=== PATIENT | female | born 1980 | race African-American/Black ===

== ENCOUNTER 2017-06-29 11:33 | Emergency (ER) | payer OTHER ==
[~2017-06-29] VITALS: Ht 166.4 cm; Wt 104.3 kg
[2017-06-29] MEDS ORDERED: IV NORMAL SALINE 1000ML BAG 1,000 ML IV SCH (12:06)
--- NOTE | 2017-06-29 12:07 | PHYS DOC ---
Past Medical History Past Medical History: No Pertinent History Past Surgical History: Tubal ligation Alcohol Use: None Drug Use: Marijuana Adult General Chief Complaint Chief Complaint: DIZZY/LIGHT HEADED HPI HPI Patient is a 36 year old -[place] female who presents with nausea and vertigo type symptoms. She states she had this in March 2014 and was seen in the ER and given a medicine of which she never filled. She states the symptoms resolved and is calm and gone several times since then. She is a couple days ago flared up again and then today got worse. She states she feels nauseated she 's vomited at least once. She denies any neck pain, chest pain, or abdominal pain. She does complain of pressure in her ears and behind her eyes and feels congested. She states the room spins around and around like she is "drunk". She denies any headache or any focal neurological deficits. She states closing her eyes makes her symptoms feel a little better. She states looking far to the right makes her symptoms worse. She denies really being on any medications, and allergies to any medications. Review of Systems Review of Systems Constitutional: Denies fever or chills Eyes: Denies change in visual acuity, redness, or eye pain HENT: Denies nasal congestion or sore throat Respiratory: Denies cough or shortness of breath Cardiovascular: No additional information not addressed in HPI GI: Denies abdominal pain, bloody stools or diarrhea, positive for nausea, vomiting, : Denies dysuria or hematuria Musculoskeletal: Denies back pain or joint pain Integument: Denies rash or skin lesions Neurologic: Denies headache, focal weakness or sensory changes, positive for vertigo. Endocrine: Denies polyuria or polydipsia Current Medications Current Medications Current Medications Medications (Trade) Dose Ordered Sig/Louie Start Time Stop Time Status Last Admin Dose Admin Meclizine HCl (Antivert) 25 mg 1X ONCE 06/29/17 12:45 06/29/17 12:46 DC 06/29/17 13:02 25 MG Ondansetron HCl (Zofran Odt) 4 mg 1X ONCE 06/29/17 12:45 06/29/17 12:48 DC 06/29/17 12:52 4 MG Sodium Chloride 1,000 ml @ 1,000 mls/hr Q1H 06/29/17 12:06 06/29/17 13:05 DC 06/29/17 13:02 1,000 MLS/HR Allergies Allergies Allergies Coded Allergies Type Severity Reaction Last Updated Verified No Known Drug Allergies 09/23/13 No Physical Exam Physical Exam Constitutional: Well developed, well nourished, no acute distress, non-toxic appearance. HENT: Normocephalic, atraumatic, bilateral external ears normal, oropharynx moist, no oral exudates, nose normal. Eyes: PERRLA, EOMI, conjunctiva normal, no discharge. Neck: Normal range of motion, no tenderness, supple, no stridor. Cardiovascular:Heart rate regular rhythm, no murmur Lungs & Thorax: Bilateral breath sounds clear to auscultation Abdomen: Bowel sounds normal, soft, no tenderness, no masses, no pulsatile masses. Skin: Warm, dry, no erythema, no rash. Back: No tenderness, no CVA tenderness. Extremities: No tenderness, no cyanosis, no clubbing, ROM intact, no edema. Neurologic: Alert and oriented X 3, normal motor function, normal sensory function, no focal deficits noted. Cranial nerves II through XII intact, slight nystagmus with extreme right gaze. [id number] nose intact Psychologic: Affect normal, judgement normal, mood normal. Current Patient Data Vital Signs Vital Signs Date Time Temp Pulse Resp B/P (MAP) Pulse Ox O2 Delivery O2 Flow Rate FiO2 06/29/17 12:04 98.6 62 18 118/54 (75) 98 Room Air 98.6 Lab Values Laboratory Tests Test 06/29/17 11:47 06/29/17 11:58 06/29/17 13:00 Urine Collection Type Void Urine Color Yellow Urine Clarity Clear Urine pH 7.0 Urine Specific [place] 1.015 Urine Protein Negative mg/dL (NEG-TRACE) Urine Glucose (UA) Negative mg/dL (NEG) Urine Ketones (Stick) 15 mg/dL (NEG) Urine Blood Negative (NEG) Urine Nitrite Negative (NEG) Urine Bilirubin Negative (NEG) Urine Urobilinogen Dipstick 1.0 mg/dL (0.2 mg/dL) Urine Leukocyte Esterase Negative (NEG) Urine RBC Occ /HPF (0-2) Urine WBC 1-4 /HPF (0-4) Urine Squamous Epithelial Cells Many /LPF Urine Bacteria Moderate /HPF (0-FEW) Urine Mucus Marked /LPF Urine Opiates Screen Neg (NEG) Urine Methadone Screen Neg (NEG) Urine Barbiturates Neg (NEG) Urine Phencyclidine Screen Neg (NEG) Urine Amphetamine/Methamphetamine Neg (NEG) Urine Benzodiazepines Screen Neg (NEG) Urine Cocaine Screen Neg (NEG) Urine Cannabinoids Screen Pos (NEG) Urine Ethyl Alcohol Neg (NEG) POC Urine HCG, Qualitative Hcg negative (Negative) White Blood Count 5.6 x10^3/uL (4.0-11.0) Red Blood Count 4.38 x10^6/uL (3.50-5.40) Hemoglobin 12.8 g/dL (12.0-15.5) Hematocrit 38.6 % (36.0-47.0) Mean Corpuscular Volume 88 fL (79-100) Mean Corpuscular Hemoglobin 29 pg (25-35) Mean Corpuscular Hemoglobin Concent 33 g/dL (31-37) Red Cell Distribution Width 14.6 % (11.5-14.5) H Platelet Count 255 x10^3/uL (140-400) Neutrophils (%) (Auto) 57 % (31-73) Lymphocytes (%) (Auto) 33 % (24-48) Monocytes (%) (Auto) 7 % (0-9) Eosinophils (%) (Auto) 2 % (0-3) Basophils (%) (Auto) 1 % (0-3) Neutrophils # (Auto) 3.2 x10^3uL (1.8-7.7) Lymphocytes # (Auto) 1.8 x10^3/uL (1.0-4.8) Monocytes # (Auto) 0.4 x10^3/uL (0.0-1.1) Eosinophils # (Auto) 0.1 x10^3/uL (0.0-0.7) Basophils # (Auto) 0.1 x10^3/uL (0.0-0.2) Sodium Level 142 mmol/L (136-145) Potassium Level 4.1 mmol/L (3.5-5.1) Chloride Level 105 mmol/L (98-107) Carbon Dioxide Level 27 mmol/L (21-32) Anion Gap 10 (6-14) Blood Urea Nitrogen 6 mg/dL (7-20) L Creatinine 0.6 mg/dL (0.6-1.0) Estimated GFR (Cockcroft-Gault) 137.7 Glucose Level 89 mg/dL (70-99) Calcium Level 9.4 mg/dL (8.5-10.1) Magnesium Level 1.9 mg/dL (1.8-2.4) Total Bilirubin 0.7 mg/dL (0.2-1.0) Direct Bilirubin < 0.1 mg/dL (0.0-0.2) Aspartate Amino Transferase (AST) 21 U/L (15-37) Alanine Aminotransferase (ALT) 15 U/L (14-59) Alkaline Phosphatase 64 U/L (46-116) Creatine Kinase 98 U/L (26-192) Creatine Kinase MB (Mass) < 0.5 ng/mL (0.0-3.6) Creatine Kinase MB Relative Index % (0-4) Total Protein 7.5 g/dL (6.4-8.2) Albumin 3.7 g/dL (3.4-5.0) Serum Test, Qualitative Negative (NEG) Laboratory Tests 06/29/17 13:00 Laboratory Tests 06/29/17 13:00 EKG EKG [] Radiology/Procedures Radiology/Procedures [] Impressions: Vertigo Course & Med Decision Making Course & Med Decision Making Pertinent Labs and Imaging studies reviewed. (See chart for details) Labs shows elevated ketones in her urine which is likely secondary to dehydration and nausea. She was given meclizine and ODT Zofran and her symptoms have resolved. EKG, remainder of her labs are nonacute. We'll discharge with ODT Zofran and meclizine. Return precautions given. Patient's agreeable plan being discharged in stable condition this time. Dragon Disclaimer Dragon Disclaimer This electronic medical record was generated, in whole or in part, using a voice recognition dictation system. Departure Departure Impression: Primary Impression: Vertigo Disposition: 01 HOME, SELF-CARE Condition: STABLE Referrals: NO PCP (PCP) Patient Instructions: Vertigo Additional Instructions: Your symptoms improved with oral dissolvable tablet Zofran and meclizine. Your labs did not show any acute abnormalities other than being slightly dehydrated. Your being discharged home and you should follow-up with neurology for your vertigo. Please call their office and schedule follow-up appointment. Return ER if your symptoms get worse, you have weakness in your arms or legs, we have any other concerns. You can use [id number] Claritin for your sinus congestion. Scripts Meclizine Hcl (MECLIZINE HCL) 25 Mg Tablet 1 TAB PO PRN TID Y for dizziness, #30 TAB Prov: VELMA VERNON MD 06/29/17 Ondansetron (ZOFRAN ODT) 4 Mg Tab.rapdis 1 TAB SL Q8HRS, #10 TAB Prov: VELMA VERNON MD 06/29/17 VELMA VERNON MD Jun 29, 2017 12:07
[2017-06-29 12:23] LABS: BILIRUBIN,URINE NEGATIVE (NEG); GLUCOSE,URINE NEGATIVE (NEG); NITRITE,URINE NEGATIVE (NEG); PROTEIN,URINE NEGATIVE (NEG-TRACE)
[2017-06-29 12:38] LABS: BACTERIA,URINE MODERATE /HPF (0-FEW); BARBITURATES NEG (NEG); BENZODIAZEPINES NEG (NEG); CANNABINOIDS POS (NEG); COCAINE NEG (NEG); METHADONE NEG (NEG); OPIATES NEG (NEG); PHENCYCLIDINE NEG (NEG); RBC,URINE OCC /HPF (0-2); SQUAMOUS EPITHELIAL CELL,UR MANY /LPF
[2017-06-29] MEDS ORDERED: ONDANSETRON ODT 4 MG TAB.RAPDIS. PO ONE (12:45)
[2017-06-29] MEDS ORDERED: MECLIZINE HCL 12.5 MG TABLET. PO ONE (12:45)
[2017-06-29 13:22] LABS: BASO # 0.1 x10^3/uL (0.0-0.2); BASO % 1 % (0-3); EOS % 2 % (0-3); HEMATOCRIT 38.6 % (36.0-47.0); HEMOGLOBIN 12.8 g/dL (12.0-15.5); LYMPH # 1.8 x10^3/uL (1.0-4.8); LYMPH % 33 % (24-48); MEAN CORPUSCULAR HEMOGLOBIN 29 pg (25-35); MEAN CORPUSCULAR HGB CONC 33 g/dL (31-37); MEAN CORPUSCULAR VOLUME 88 fL (79-100); MONO % 7 % (0-9); NEUT % 57 % (31-73); PLATELET COUNT 255 x10^3/uL (140-400); RED BLOOD COUNT 4.38 x10^6/uL (3.50-5.40); RED CELL DISTRIBUTION WIDTH 14.6 % (11.5-14.5); WHITE BLOOD COUNT 5.6 x10^3/uL (4.0-11.0)
[2017-06-29 13:26] LABS: NEG OBC SER NEG; POS OBC SER POS
[2017-06-29 13:29] LABS: ANION GAP 10 (6-14); BLOOD UREA NITROGEN 6 mg/dL (7-20); CALCIUM 9.4 mg/dL (8.5-10.1); CARBON DIOXIDE 27 mmol/L (21-32); CHLORIDE 105 mmol/L (98-107); CREATININE 0.6 mg/dL (0.6-1.0); GFR 137.7; GLUCOSE 89 mg/dL (70-99); POTASSIUM 4.1 mmol/L (3.5-5.1); SODIUM 142 mmol/L (136-145)
[2017-06-29 13:35] LABS: ALBUMIN 3.7 g/dL (3.4-5.0); ALK PHOS 64 U/L (46-116); ALT (SGPT) 15 U/L (14-59); AST (SGOT) 21 U/L (15-37); DIRECT BILIRUBIN < 0.1 mg/dL (0.0-0.2); MAGNESIUM 1.9 mg/dL (1.8-2.4); TOTAL BILIRUBIN 0.7 mg/dL (0.2-1.0); TOTAL PROTEIN 7.5 g/dL (6.4-8.2)
[2017-06-29 13:43] LABS: CKMB MASS < 0.5 ng/mL (0.0-3.6); CREATINE KINASE 98 U/L (26-192)
[2017-06-29] MEDS ORDERED: ONDA4TAB10 SL (14:10)
[2017-06-29] MEDS ORDERED: MECL25TA3 PO (14:10)
[2017-06-29 14:17] VITALS: BP 126/59
--- NOTE | 2017-06-29 14:54 | EKG ---
[facility] [address] [place] [address] Test Date: 2017-06-29 Test Time: 13:07:46 Pat Name: FARHAT DAUGHERTY Department: Room: Gender: F Photographer Apprentice: : 1980 Requested By: VELMA VERNON Order Number: [id number] Reading MD: Chayo Chanel Measurements Intervals [place] Rate: 54 P: 40 ME: 170 QRS: 17 QRSD: 80 T: 20 QT: 440 QTc: 419 Interpretive Statements SINUS RHYTHM NORMAL ECG Electronically Signed On 06-29-2017 20:12:29 CDT by Chayo Chanel
== END 2017-06-29 14:40 | disposition home or self-care (01) ==
LOC: ER 11:33
DX: R42 Dizziness and giddiness (principal); R11.0 Nausea; Z79.899 Other long term (current) drug therapy
CPT/HCPCS: 36415; 80048; 80076; 80307; 81001; 81025; 82553; 83735; 84484; 84703; 85025; 87086; 93005; 96360; 99285; J7030; J8597; Q0162; G0479

== ENCOUNTER → 2019-03-17 | Outpatient (CLI) | payer BC ==
[~2019-03-17] MED LIST: MECL25TA3 PO; ONDA4TAB10 SL
--- NOTE | 2019-03-17 17:01 | RAD ---
Transabdominal sonography of the pelvis Clinical indications: Fibroids FINDINGS: The uterus is anteverted in position. The longitudinal and AP and transverse dimensions of the uterus are 16.1 cm and 9.4 cm and 11.8 cm respectively. Uterus is heterogeneous and lobulated consistent with fibroids. Largest fibroid is seen extending from the fundus of the uterus posteriorly measuring 4.7 cm in greatest dimension. It may be serosal or pedunculated. The endometrial canal measures 14 mm in thickness. Neither ovary is visualized. No adnexal mass is seen. No free fluid is evident. IMPRESSION: Fibroid uterus. Largest is seen extending off the fundus and may be serosal or pedunculated and measures 4.7 cm in greatest dimension. This has increased in size from the previous study in 2015. It measured 3.6 cm previously. Mild thickening of the endometrial canal. Electronically signed by: Yefri Dyson MD (03/17/2019 4:58 PM) [id number]
== END | disposition home or self-care (01) ==
LOC: US 11:30
PROVIDERS: ATTEND Family Medicine
DX: D25.9 Leiomyoma of uterus, unspecified (principal); R93.89 Abnormal findings on diagnostic imaging of other specified body structures
CPT/HCPCS: 76856